=== PATIENT | female | born 1955 | race Caucasian/White ===

== ENCOUNTER 2017-02-01 18:32 | Emergency (ER) | payer OTHER ==
[2017-02-01] MEDS ORDERED: ONDANSETRON 4 MG TAB.RAPDIS PO ONE ×2 (19:34→23:25)
[2017-02-01] MEDS ORDERED: ONDANSETRON 4 MG TAB.RAPDIS ONE ×2 (19:35→23:26)
[2017-02-01] MEDS ORDERED: NORMAL SALINE 1,000 ML IV ONE (20:02)
--- OUTSIDE RECORDS SUMMARY | 2017-02-01 20:02 | XMS REPORT | CCD ---
:1955 Author Name KRISH BOB Address [address] [facility] Unavailable [place], [place] [id number] Care Team Providers Name Role Phone DILIP SALCEDO Attending Physician Unavailable WILVER CANELA Nurse Oxygen Furnace Operator Unavailable Vital Signs Vital Sign Value Unit Height 64 in Weight Measured 146.1 lbs BMI (Body Mass Index) 25.08 kg/m^2 BSA (Body Surface Area) 1.73 m^2 Allergies Allergy Code Allergy Type Reaction Status No Known Drug Allergies 0 No known drug allergies Active Procedures Procedure Code Procedure Type Date CATARAC PHACOEMULS ASPIR 1341 ICD-9 CM, Volume 3 10/09/2013 INSERT LENS AT CATAR EXT 1371 ICD-9 CM, Volume 3 10/09/2013 History of Immunizations Unknown. Problems Unknown. Results Unknown. Medications Unknown. Medications Administered Unknown. 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 Instructions You were admitted to [facility] on 10/09/2013 with a principle diagnosis of SENILE NUCLEAR CATARACT. You had the following procedures done:CATARACT SURG W/IOL 1 STAGEINSERT LENS AT CATAR EXT You were discharged from [facility] on 10/09/2013. Should you have any questions prior to discharge, please contact a member of your healthcare team. If you have left the hospital and have any questions, please contact your primary care physician. Chief Complaint and Reason For Visit Unknown. Function Status Unknown. Plan of Care Unknown.
--- OUTSIDE RECORDS SUMMARY | 2017-02-01 20:02 | XMS REPORT | Continuity of Care Document ---
:1955 Author Organization [facility] ([facility]) Address [address] [place] [address] Phone [phone] Care Team Providers Name Role Phone AlexusbrendanRaul Primary Care Provider [phone] Source Comments This disclosure is being made pursuant to the Care Everywhere program, applicable federal and state laws, and may not contain all informaitonavailable regarding this patient.[facility] ([facility]) Active Allergies and Adverse Reactions Allergen Noted Date Severity Reactions Comments Metoclopramide 01/12/2012 Dizziness Current Medications Prescription Sig. Disp. Refills Start Date End Date Status DULOXETINE HCL (CYMBALTA Take 60 mg by mouth Active PO) daily . ALPRAZolam (XANAX) 0.5 mg Take 0.5 mg by Active tablet mouth at bedtime as needed. traZODone 100 mg tablet Take 100 mg by Active mouth at bedtime. Taking 2 tablets at bed time ranitidine 75 mg tablet Take 75 mg by mouth Active 2 times daily. FLUoxetine 40 mg capsule Take 40 mg by mouth Active daily. levothyroxine 75 mcg Take 75 mcg by Active tablet mouth every morning before breakfast. cetirizine 10 mg tablet Take 10 mg by mouth Active daily. Active Problems Problem Noted Date Breast asymmetry between [place] breast and reconstructed breast 05/11/2016 Personal history of breast cancer 01/30/2016 Stage 2 carcinoma of breast, ER- 11/14/2012 Immunizations Name Dates Previously Given Next Due Influenza, unspecified 09/22/2015 Varicella 04/21/2015 Social History Tobacco Use Types Packs/Day Years Used Date Former Smoker Cigarettes 0.25 Quit: 01/27/2016 Smokeless Tobacco: Never Used Comments:wokring on quitting Last Filed Vital Signs Vital Sign Reading Time Taken Blood Pressure 128/66 04/28/2016 2:25 PM CDT Pulse 51 04/28/2016 9:21 AM CDT Temperature 36.5 C (97.7 F) 05/11/2016 9:48 AM CDT Respiratory Rate 14 04/28/2016 9:21 AM CDT Height 1.626 m (5' 4.02") 04/20/2016 11:37 AM CDT Weight 56.1 kg (123 lb 10.9 oz) 04/28/2016 9:21 AM CDT Body Mass Index 21.22 04/28/2016 9:21 AM CDT Oxygen Saturation 98% 04/28/2016 2:25 PM CDT Plan of Care Health Maintenance Due Date Last Done Comments HCV Screening 1955 Hepatitis B Vaccine (1 of 3 - Primary 1955 Series) Tdap Vaccine 1966 Lipid Disorder Screening 1973 Td Vaccine 1973 Pneumococcal Vaccine (1 of 3 - PCV13) 1974 Cervical Cancer Screening 1985 Mammogram 01/01/2005 01/01/2004, 12/27/2002 Colonoscopy 11/22/2005 Zoster Vaccine 2015 Influenza Vaccine: Seasonal (#1) 06/28/2016 09/22/2015 Results from Last 3 Months Not on file
--- NOTE | 2017-02-01 20:13 | ERNOTE ---
Medical Problem HPI - Narrative Date of Service: 02/01/17 - General Chief Complaint: Nausea/Vomiting Time Seen by Provider: 02/01/17 19:56 Source: patient Exam Limitations: no limitations - Immun/Allergies/Home Medications Immunizations: IMMUNIZATION HX Immunizations Up to Date No History of Influenza Vaccine Yes Hx Pneumococcal Vaccination No Allergies/Adverse Reactions: Allergies No Known Allergies Allergy (Unverified 08/08/14 17:06) Home Medications: HOME MEDICATIONS Alprazolam [Xanax Xr] 0.5 mg PO DAILY 08/08/14 [Last Taken Unknown] DULoxetine HCL [Cymbalta] 10 mg PO DAILY 08/08/14 [Last Taken Unknown] FLUoxetine HCL [Prozac] 20 mg PO DAILY 08/08/14 [Last Taken Unknown] Levothyroxine Sodium [Tirosint] 75 mcg PO DAILY 08/08/14 [Last Taken Unknown] Multivitamin [Multi Vitamin Daily] 1 each PO DAILY 08/08/14 [Last Taken Unknown] Ranitidine HCl [Zantac] 150 mg PO HS 08/08/14 [Last Taken Unknown] traZODone HCL [Desyrel] 100 mg PO HS 08/08/14 [Last Taken Unknown] Ondansetron [Zofran Odt] 4 mg PO Q6H PRN #20 tab 02/01/17 [Last Taken Unknown] Tegretol 02/01/17 [Last Taken Unknown] - History of Present History Narrative: Pt. comes in with c/o nausea, vomiting, and diarrhea for 10 hours. Pt. states that she was recently exposed to a stomach virus by her grandchildren and they are better but she has had 20 diarrhea stools today and is having intermittent stomach cramps with this and bilious vomiting x 3 today. Pt. denies any fever, SOB, sinus congestion, recent illness, alleviating factors, or aggravating factors. Pt. denies any prehospital treatment. Review of Systems - Review of Systems Constitutional: Present: no symptoms reported. Absent: recent illness, fever, chills, weakness, fatigue, malaise EYE: Present: no symptoms reported ENT: Present: no symptoms reported. Absent: nose congestion, nasal drainage, sore throat Respiratory: Present: no symptoms reported. Absent: shortness of breath, cough , wheezing Cardiology: Present: no symptoms reported. Absent: chest pain, palpitations, edema Gastrointestinal/Abdominal: Present: nausea, vomiting, diarrhea, abdominal pain - intermittent cramping Musculoskeletal: Present: no symptoms reported. Absent: back pain, joint pain Skin: Present: no symptoms reported Neurological: Present: no symptoms reported. Absent: headache, dizziness/light- headedness, numbness, tingling Endocrine: Present: no symptoms reported All Other Systems: All systems neg except as marked - Patient's Past Medical History Patient History - Medical: Anxiety, Depression, GERD, Hypothyroidism Patient History - Cardiac/Respiratory: No pertinent hx Patient History - Cancer: Breast Patient History - Surgical Procedures: Cancer Surgery, Cholecystectomy, Tubal Ligation Patient History - Other: None - Social History Living Situations: home Abuse History: No History of abuse Psych History: Hx of Anxiety, Hx of Depression, Current tx/ever been on anti- depressants or anti-anxiety meds Smoking Status: Never smoker Have you smoked in the past 12 months: No Do you dip or chew tobacco: No Patient requests Smoking Cessation Consult: No Initiate information on Smoking Cessation: No Alcohol Use: occasionally Drug Use: marijuana - Immunizations Immunizations Up to Date: No Hx Pneumococcal Vaccination: No History of Influenza Vaccine: Yes Physical Exam - Physical Exam General Appearance: Present: wd/wn, alert, no apparent distress Eye Exam: Normal inspection: bilateral, PERRL: bilateral, EOMI: bilateral Ears, Nose, Throat: Present: normal ENT inspection Neck: Present: normal inspection, nontender. Absent: lymphadenopathy (R), lymphadenopathy (L) Respiratory: Present: no respiratory distress, normal breath sounds, no accessory muscle use, chest nontender, lungs clear Cardiovascular/Chest: Present: regular rate, rhythm, no murmur, normal peripheral pulses Gastrointestinal/Abdominal: Present: normal bowel sounds, nontender, nondistended, soft, no organomegaly Back Exam: Present: normal inspection, normal range of motion, no CVA tenderness , no vertebral tenderness. Absent: muscle spasm Extremity Exam: Present: normal inspection Neurological Exam: Present: alert, oriented, normal mood/affect, no motor/ sensory deficits, 3d modeler II-XII nml as tested, normal cerebellar test Skin Exam: Present: normal color, warm/dry. Absent: pallor, skin rash ED Progress - Date and Time Seen: Date and Time: 02/01/17 22:56 with US negative elevated LFTs likely related to hepatitis vs tegretol... will have pt. stop tegretol by weaning slowly and having her follow up with her PCP in 2-3 days - Results and Orders Patient's Lab Results:: I have reviewed the patient's lab results. - Vital Signs Patient's Vital Signs:: I have reviewed the patient's vital signs. Vital Signs: Vital Signs 02/01/17 18:49 Temperature 36.4 C L Pulse Rate 82 Respiratory 20 Rate Blood Pressure 140/85 O2 Sat by Pulse 100 Oximetry - CT/Ultrasound CT/Ultrasound Narrative: US negative for acute processes. - Progress/Reassessment Chief Complaint: Nausea/Vomiting Departure - Departure Clinical Impression: Elevated LFTs Disposition: Home self-care Condition: Good Instructions: Liver Function Tests Additional Instructions: Please follow up with primary provider in 2-3 days Referrals: Yordan Vaca MD [Primary Care Provider] - Prescriptions: Ondansetron [Zofran Odt] 4 mg PO Q6H PRN #20 tab PRN Reason: Nausea
[2017-02-01 20:20] LABS: Hematocrit 37.3 % (37.0-47.0); Hemoglobin 12.9 gm/dL (12.5-16.0); Mean Corpuscular Hemoglobin 31.5 pg (27-31); Mean Corpuscular Hgb Conc 34.6 g/dl (32-36); Mean Platelet Volume 8.8 fl (6.0-9.5); Neutrophil # 6.6 K/mm3 (1.3-6.0); Platelet Count 253 K/mm3 (150-450); Red Cell Distribution Width 12.3 % (11.5-14.0); White Blood Count 7.7 K/mm3 (4.0-10.5)
[2017-02-01 20:41] LABS: Albumin * 3.7 gm/dl (3.4-5.0); Anion Gap 12.9 mmol/L (6.8-13.8); BUN/Creatinine Ratio 21.1 (9.0-21.6); Bilirubin, Total 0.9 mg/dL (0.0-1.1); Ca. Corrected For Albumin 8.3 mg/dL (8.4-10.2); Calcium * 8.4 mg/dL (7.9-10.9); Potassium 3.9 mmol/L (3.4-4.6); Total Protein 6.8 gm/dL (6.2-8.2)
[2017-02-01 21:09] LABS: Urine Bilirubin Negative (NEGATIVE); Urine Blood Negative /ul (NEGATIVE); Urine Ketone 5 mg/dL (NEGATIVE); Urine Nitrite Negative (NEGATIVE); Urine Protein 30 mg/dL (NEGATIVE); Urine Urobilinogen Normal (NORMAL)
[2017-02-01 21:23] LABS: Urine Appearance Clear; Urine Bacteria 3+; Urine Color Dark Yellow; Urine RBC None Seen /hpf (0-5); Urine WBC 0-5 /hpf (0-5)
[2017-02-01 23:22] VITALS: BP 152/72
[2017-02-03 11:15] LABS: Hepatitis C Antibody NON-REACTIVE (NON-REACTIVE); Hepatitis Panel Confirmation DNR
[2017-02-03 11:32] LABS: Hepatitis A IgM Antibody NON-REACTIVE (NON-REACTIVE); Hepatitis B Surface Antigen NON-REACTIVE (NON-REACTIVE)
== END 2017-02-01 23:38 | disposition home or self-care (01) ==
LOC: ER 18:32
DX: R79.89 Other specified abnormal findings of blood chemistry (principal); Z85.3 Personal history of malignant neoplasm of breast; F41.8 Other specified anxiety disorders; K21.9 Gastro-esophageal reflux disease without esophagitis; E03.9 Hypothyroidism, unspecified

== ENCOUNTER 2021-03-04 11:54 | Inpatient (IN) ==
[2021-03-04] MEDS ORDERED: ASPIRIN 81 MG TAB.CHEW PO ONE (12:21)
--- NOTE | 2021-03-04 12:24 | ERNOTE ---
Chest Pain/Cardiac HPI Date of Service: 03/04/21 Chief Complaint: Chest Pain Time Seen by Provider: 03/04/21 12:14 Source: patient, family, RN notes reviewed, past records Exam Limitations: no limitations Immunizations: IMMUNIZATION HX Immunizations Up to Date Yes History of Influenza Vaccine Yes Hx Pneumococcal Vaccination Yes Allergies/Adverse Reactions: Allergies carbamazepine [From Tegretol] Adverse Reaction (Severe, Verified 02/09/21 14:51) "liver attack" per patient "liver attack" Jyuuzbe-Hay-Uxv Reductase Inhibitor Adverse Reaction (Severe, Verified 02/09/21 14:51) Diarrhea Home Medications: HOME MEDICATIONS mecobalamin (vitamin B12) 1,000 mcg disintegrating tablet,sublingual 1,000 mcg SL DAILY 01/08/19 [Last Taken Unknown] cholecalciferol (vitamin D3) 25 mcg (1,000 unit) capsule 1,000 unit PO DAILY 07/10/19 [Last Taken Unknown] pantoprazole 20 mg tablet,delayed release 20 mg PO DAILY #90 tab 09/29/20 [Last Taken Unknown] levothyroxine 88 mcg tablet 88 mcg PO DAILY #90 tab 12/04/20 [Last Taken Unknown] zolmitriptan 2.5 mg tablet 2.5 mg PO Q4H PRN #12 tab 12/16/20 [Last Taken Unknown] duloxetine 60 mg capsule,delayed release 60 mg PO DAILY #90 cap 12/22/20 [Last Taken Unknown] trazodone 100 mg tablet 100 mg PO HS #90 tab 12/22/20 [Last Taken Unknown] FLUoxetine HCL [Prozac] 40 mg PO DAILY 02/01/21 [Last Taken Unknown] alprazolam 0.5 mg tablet 0.5 mg PO BID PRN #60 tab 02/17/21 [Last Taken Unknown] Narrative: Chip is a 65-year-old female brought to the emergency department from home by her for chest pain and an elevated blood pressure. She began having chest pain while she was sitting and watching TV. She reports having pain in her left chest that radiated into her left arm and jaw. This was severe at first but she reports that it has mostly subsided. She also reports nausea and vomited shortly after arrival. She took Pepto-Bismol at home without improvement. She checked her blood pressure and it was over 200 systolic. She does not normally have elevated blood pressures. She has no prior history of cardiac events. Her also notes that they drove home from [facility] yesterday. She denies any pain or swelling in her legs. Timing: constant, other - improving Activities at Onset: rest Nitro Today/Relief: no nitro taken today Aspirin Treatment Today: no aspirin today Associated Symptoms: Present: shortness of breath, diaphoresis, nausea, vomiting Prior Chest Pain/Cardiac Workup: Reports: no prior cardiac workup. Denies: prior chest pain Prior Treatment: Reports: recently seen - 1 month ago for UTI Review of Systems - Review of Systems Constitutional: Present: recent illness. Absent: fever, chills, malaise EYE: Present: no symptoms reported ENT: Absent: ear pain, nose congestion, nasal drainage, sore throat Respiratory: Present: shortness of breath. Absent: cough Cardiology: Present: chest pain. Absent: edema, claudication Gastrointestinal/Abdominal: Present: nausea, vomiting. Absent: abdominal pain Genitourinary: Present: no symptoms reported Musculoskeletal: Absent: muscle pain, joint pain Skin: Absent: rash, lesions Neurological: Absent: headache, dizziness/light-headedness Endocrine: Present: no symptoms reported Hematologic/Lymphatic: Absent: easy bruising, easy bleeding Psych: Present: anxiety Medical History (Last Reviewed 03/04/21 @ 14:47 by Kimberly Ingram NP) Generalized anxiety disorder (Chronic) Major depressive disorder, recurrent episode, in partial remission (Acute) Eyelid anomaly (Acute) Hypercholesterolemia (Chronic) Onset Date: Unknown Elevated LFTs (Acute) Facial laceration (Acute) Upper respiratory infection (Acute) Breast cancer (Chronic) Onset Date: ~11/13/10 Hypothyroidism (Chronic) Onset Date: Unknown GERD (gastroesophageal reflux disease) (Chronic) Onset Date: Unknown Depression (Chronic) Onset Date: Unknown Anxiety (Chronic) Onset Date: Unknown COVID-19 vaccine administered Onset Date: ~01/22/21 1st does Pneumonia Onset Date: Unknown Trigeminal neuralgia Onset Date: Unknown Surgical History: Surgical History (Last Reviewed 03/04/21 @ 14:47 by Kimberly Ingram NP) History of cholecystectomy (Acute) Onset Date: ~06/2000 History of tubal ligation (Acute) Onset Date: ~1986 H/O colonoscopy Onset Date: ~05/09/17 H/O lumpectomy Onset Date: ~11/13/10 left History of Colt fundoplication Onset Date: ~2011 History of bladder suspension procedure Onset Date: ~2009 History of esophagogastroduodenoscopy (EGD) Onset Date: ~05/09/17 Hx of breast reduction, elective Onset Date: ~2015 right Hx of lymph node biopsy Onset Date: ~11/13/10 left, negative for mets Family History: Family History (Last Reviewed 03/04/21 @ 14:47 by Kimberly Ingram NP) Mother Diabetes Liver disease Father Cancer Tuberculosis Sister Cancer breast Uncle Cancer skin Aunt Cancer breast, skin Social History: (Last Reviewed 03/04/21 @ 14:47 by Kimberly Ingram NP) Social History: Marital status: lives independently: Yes household members: spouse number of children: 2 number of grandchildren: 5 current occupational status: retired current occupation: retired Highest level of school completed/degree received: high school graduate Service: No Tobacco: Smoking Status: Former smoker Alcohol: alcohol intake: current Alcohol type: wine Substance Use: substance use type: marijuana Dietary Habits: caffeine: Yes Type: coffee Physical Exam - Physical Exam General Appearance: Present: wd/wn, alert, mild distress, anxious Head Exam: Present: normal inspection Eye Exam: Normal inspection: bilateral Neck: Present: normal inspection, nontender, supple, full range of motion Respiratory: Present: no respiratory distress, normal breath sounds, no accessory muscle use, lungs clear Cardiovascular/Chest: Present: regular rate, rhythm, no murmur, normal peripheral pulses Extremity Exam: Present: normal inspection, non-tender, normal range of motion, no edema Neurological Exam: Present: alert, oriented, normal mood/affect, no motor/sensory deficits Skin Exam: Present: normal color, warm/dry Progress - Results and Orders Patient's Lab Results:: I have reviewed the patient's lab results. - Vital Signs Patient's Vital Signs:: I have reviewed the patient's vital signs. Vital Signs: Vital Signs 03/04/21 11:54 Temperature 36.3 C Pulse Rate 65 Respiratory Rate 14 Blood Pressure 204/73 H O2 Sat by Pulse Oximetry 100 - EKG EKG #1 EKG: NSR EKG read: Reviewed by me - CT/Ultrasound CT/Ultrasound Narrative: CTA chest is negative for PE per radiologist report - Progress/Reassessment Chief Complaint: Chest Pain Plan - Plan Plan: The patient was initially given 4 baby aspirin and 1 nitro sublingual. Her blood pressure dropped to 88 systolic. It then rebounded back to 200 systolic in just under an hour. A CTA chest was done to r/o PE since the patient had traveled home from [place], [place] yesterday by car. Her Ddimer was also elevated at 0.54, which is normal when adjusted for age. This was negative for PE. She was given Morphine 2 mg IVP for her ongoing chest pressure, which did then resolve. Initial troponin and EKG were normal. She was then given hydralazine for her blood pressure. It has since improved, currently 128/67. Her PCP is out of the office. Dr. Portillo was contacted and agreed to admit the patient to observation. Departure Clinical Impression: Accelerated hypertension Chest pain Qualifiers: Chest pain type: unspecified Qualified Code(s): R07.9 - Chest pain, unspecified - Departure Disposition: Still a patient Condition: Stable Referrals: Pham Howard MD [Primary Care Provider] -
[2021-03-04] MEDS: NITROGLYCERIN 0.4 MG/TAB BTL SL PRN (12:34)
[2021-03-04 12:36] LABS: Hematocrit 42.7 % (37.0-47.0); Hemoglobin 14.4 gm/dL (12.5-16.0); Mean Cell Volume 94.3 fl (78-100); Mean Corpuscular Hemoglobin 31.8 pg (27-31); Mean Corpuscular Hgb Conc 33.7 g/dl (32-36); Mean Platelet Volume 8.9 fl (8-12.5); Neutrophil # 6.1 K/mm3 (1.3-6.0); Neutrophil % 62.9 % (42-75.0); Platelet Count 364 K/mm3 (150-450); Red Blood Count 4.53 M/mm3 (4.2-5.4); Red Cell Distribution Width 12.8 % (11.5-14.0); White Blood Count 9.8 K/mm3 (4.0-10.5)
[2021-03-04 12:51] LABS: Prothrombin Time (Patient) 10.5 Seconds (9.1-10.7)
[2021-03-04] MEDS ORDERED: NORMAL SALINE 1,000 ML IV ONE (12:53)
[2021-03-04 12:54] LABS: INR 1.01 INR (0.92-1.08); Partial Thrombolplastin Time 23.9 Seconds (24-32)
[2021-03-04 12:56] LABS: ALT 37 U/L (19-67); AST 27 U/L (0-48); Albumin * 3.8 gm/dl (3.4-5.0); Alkaline Phosphatase * 80 U/L (50-170); Anion Gap 13.7 mmol/L (6.8-13.8); BUN/Creatinine Ratio 7.1 (9.0-21.6); Bilirubin, Total 0.2 mg/dL (0.0-1.1); Blood Urea Nitrogen 6 mg/dL (3-23); Ca. Corrected For Albumin 8.9 mg/dL (8.4-10.2); Calcium * 9.1 mg/dL (7.9-10.9); Carbon Dioxide 21.9 mmol/L (24-32.6); Chloride 101 mmol/L (97-106); Glucose * 132 mg/dL (70-110); Potassium 3.6 mmol/L (3.4-4.6); Sodium 133 mmol/L (132-142); Total Protein 7.7 gm/dL (6.2-8.2); Troponin I Less than 0.017 ng/mL (0.00-0.10)
[2021-03-04] MEDS ORDERED: MORPHINE SULFATE 2 MG/ML DISP.SYRIN IV ONE (14:14)
[2021-03-04] MEDS ORDERED: hydrALAZINE HCL 20 MG/ML VIAL IV ONE (14:51)
[2021-03-04] MEDS ORDERED: ALPRAZolam 0.5 MG TABLET PO ONE (18:15)
[2021-03-04] MEDS ORDERED: ALPRAZolam 0.5 MG TABLET PO PRN (18:41)
--- NOTE | 2021-03-04 18:47 | HP ---
Chief Complaint - Chief Complaint Date of Service: 03/04/21 Time of Service: 18:47 Chief Complaint: Chest Pain History of Present Illness: Eliane is a 65 yo female with hyperlipidemia, hypothyroidism, and anxiety who presents to the [facility] ER with chest pain, fatigue, and "racing/pounding" heart rate. Her systolic blood pressure was 220 and EKG and troponin showed no acute change. She was given SL nitro and her blood pressure dropped to 80 systolic but then rebounded back to 200. She was then given hydralazine and morphine and blood pressure improved to 160 systolic and her symptoms resolved. Medical History (Last Reviewed 03/04/21 @ 17:23 by Bao Flores RN) Generalized anxiety disorder (Chronic) Major depressive disorder, recurrent episode, in partial remission (Acute) Eyelid anomaly (Acute) Hypercholesterolemia (Chronic) Onset Date: Unknown Elevated LFTs (Acute) Facial laceration (Acute) Upper respiratory infection (Acute) Breast cancer (Chronic) Onset Date: ~11/13/10 Hypothyroidism (Chronic) Onset Date: Unknown GERD (gastroesophageal reflux disease) (Chronic) Onset Date: Unknown Depression (Chronic) Onset Date: Unknown Anxiety (Chronic) Onset Date: Unknown COVID-19 vaccine administered Onset Date: ~01/22/21 1st does Marijuana use Current Pneumonia Onset Date: Unknown Trigeminal neuralgia Onset Date: Unknown Surgical History: Surgical History (Last Reviewed 03/04/21 @ 17:23 by Bao Flores RN) History of cholecystectomy (Acute) Onset Date: ~06/2000 History of tubal ligation (Acute) Onset Date: ~1986 H/O colonoscopy Onset Date: ~05/09/17 H/O lumpectomy Onset Date: ~11/13/10 left History of Colt fundoplication Onset Date: ~2011 History of bladder suspension procedure Onset Date: ~2009 History of esophagogastroduodenoscopy (EGD) Onset Date: ~05/09/17 Hx of breast reduction, elective Onset Date: ~2015 right Hx of lymph node biopsy Onset Date: ~11/13/10 left, negative for mets Family History: Family History (Last Reviewed 03/04/21 @ 17:23 by Bao Flores RN) Mother Diabetes Liver disease Father Cancer Tuberculosis Sister Cancer breast Uncle Cancer skin Aunt Cancer breast, skin Social History: (Last Updated 03/04/21 @ 17:41 by Bao Flores RN) Social History: Marital status: lives independently: Yes household members: spouse number of children: 2 number of grandchildren: 5 current occupational status: retired current occupation: retired Highest level of school completed/degree received: high school graduate Service: No Tobacco: Smoking Status: Current some day smoker Alcohol: alcohol intake: current Alcohol type: wine Substance Use: substance use type: marijuana Dietary Habits: caffeine: Yes Type: coffee Review Of Systems (GEN) - Review of Systems Generalized/Overall Review: Present: Weakness. Absent: Chills, Fever EENTM: Present: No Symptoms Reported Respiratory: Absent: Cough, Shortness of Breath Cardiac: Present: Chest Pain, Palpitations. Absent: Edema Abdominal: Absent: Nausea, Vomiting Genitourinary: Present: No Symptoms Reported Musculoskeletal: Present: No Symptoms Reported Neurological: Present: No Symptoms Reported Skin: Present: No Symptoms Reported Immunizations: IMMUNIZATION HX Immunizations Up to Date Yes History of Influenza Vaccine Yes Hx Pneumococcal Vaccination Yes Allergies/Adverse Reactions: Allergies Allergy/AdvReac Type Severity Reaction Status Date / Time carbamazepine [From Tegretol] AdvReac Severe "liver Verified 02/09/21 14:51 attack" per patient Kqlyzui-Zyi-Lwy Reductase AdvReac Severe Diarrhea Verified 02/09/21 14:51 Inhibitor Home Medications: HOME MEDICATIONS mecobalamin (vitamin B12) 1,000 mcg disintegrating tablet,sublingual 1,000 mcg SL DAILY 01/08/19 [Last Taken Unknown] cholecalciferol (vitamin D3) 25 mcg (1,000 unit) capsule 1,000 unit PO DAILY 07/10/19 [Last Taken Unknown] pantoprazole 20 mg tablet,delayed release 20 mg PO DAILY #90 tab 09/29/20 [Last Taken Unknown] levothyroxine 88 mcg tablet 88 mcg PO DAILY #90 tab 12/04/20 [Last Taken Unknown] zolmitriptan 2.5 mg tablet 2.5 mg PO Q4H PRN #12 tab 12/16/20 [Last Taken U nknown] duloxetine 60 mg capsule,delayed release 60 mg PO DAILY #90 cap 12/22/20 [Last Taken Unknown] trazodone 100 mg tablet 100 mg PO HS #90 tab 12/22/20 [Last Taken Unknown] FLUoxetine HCL [Prozac] 40 mg PO DAILY 02/01/21 [Last Taken Unknown] alprazolam 0.5 mg tablet 0.5 mg PO BID PRN #60 tab 02/17/21 [Last Taken Unknown] Exam - Exam Vital Signs: Vital Signs - Last Taken Temp 36.5 C 03/04/21 17:17 Pulse 71 03/04/21 17:36 Resp 18 03/04/21 17:17 BP 143/65 03/04/21 17:17 Pulse Ox 99 03/04/21 17:17 Constitutional: Present: Alert, Oriented x3, Cooperative ENT Exam: Present: hearing grossly normal Eye Exam: bilateral eye: normal inspection Respiratory: Present: lungs clear, normal breath sounds, no respiratory distress Cardiovascular/Chest: Present: regular rate, rhythm, no murmur Peripheral Pulses: radial (R): 2+, radial (L): 2+ Abdomen: Present: Normal bowel sounds, soft, nontender, nondistended Extremity: Present: normal inspection Skin Exam: Present: normal color, warm/dry, no cyanosis Neurologic: Present: alert, normal mood/affect, oriented x 3 Appearance: Present: appropriate insight, other - anxious Diagnostic Studies: Abnormal Lab Results 03/04/21 03/04/21 03/04/21 Range/Units 12:31 12:31 12:31 MCH 31.8 H (27-31) pg Immature Gran % (Auto) 0.50 H (0.001-0.429) % Immature Gran # (Auto) 0.05 H (0.000-0.0310) K/mm3 Neutrophils # 6.1 H (1.3-6.0) K/mm3 PTT (Po) 23.9 L (24-32) Seconds D-Dimer (0.19-0.49) ugFEU/mL Carbon Dioxide 21.9 L (24-32.6) mmol/L BUN/Creatinine Ratio 7.1 L (9.0-21.6) Random Glucose 132 H (70-110) mg/dL 03/04/21 Range/Units 12:31 MCH (27-31) pg Immature Gran % (Auto) (0.001-0.429) % Immature Gran # (Auto) (0.000-0.0310) K/mm3 Neutrophils # (1.3-6.0) K/mm3 PTT (Po) (24-32) Seconds D-Dimer 0.54 H (0.19-0.49) ugFEU/mL Carbon Dioxide (24-32.6) mmol/L BUN/Creatinine Ratio (9.0-21.6) Random Glucose (70-110) mg/dL Laboratory Results WBC 9.8 K/mm3 (4.0-10.5) 03/04/21 12:31 RBC 4.53 M/mm3 (4.2-5.4) 03/04/21 12:31 Hgb 14.4 gm/dL (12.5-16.0) 03/04/21 12:31 Hct 42.7 % (37.0-47.0) 03/04/21 12:31 MCV 94.3 fl (78-100) 03/04/21 12:31 MCH 31.8 pg (27-31) H 03/04/21 12:31 MCHC 33.7 g/dl (32-36) 03/04/21 12:31 RDW 12.8 % (11.5-14.0) 03/04/21 12:31 Plt Count 364 K/mm3 (150-450) 03/04/21 12:31 MPV 8.9 fl (8-12.5) 03/04/21 12:31 Immature Gran % (Auto) 0.50 % (0.001-0.429) H 03/04/21 12:31 Immature Gran # (Auto) 0.05 K/mm3 (0.000-0.0310) H 03/04/21 12:31 Neutrophils % 62.9 % (42-75.0) 03/04/21 12:31 Lymphocytes % 26.0 % (20-51) 03/04/21 12:31 Monocytes % 7.7 % (0.0-9) 03/04/21 12:31 Eosinophils % 2.0 % (0.0-3.0) 03/04/21 12:31 Basophils % 0.9 % (0.0-1.0) 03/04/21 12:31 Nucleated RBC % 0.0 k/mm3 (0-1) 03/04/21 12:31 Neutrophils # 6.1 K/mm3 (1.3-6.0) H 03/04/21 12:31 Lymphocytes # 2.54 k/mm3 (1.5-3.5) 03/04/21 12:31 Monocytes # 0.8 k/mm3 (0.0-1.0) 03/04/21 12:31 Eosinophils # 0.2 k/mm3 (0.0-0.7) 03/04/21 12:31 Absolute Basophils 0.1 k/mm3 (0.0-0.1) 03/04/21 12:31 PT 10.5 Seconds (9.1-10.7) 03/04/21 12:31 INR (Anticoag Therapy) 1.01 INR (0.92-1.08) 03/04/21 12:31 PTT ([place]) 23.9 Seconds (24-32) L 03/04/21 12:31 D-Dimer 0.54 ugFEU/mL (0.19-0.49) H 03/04/21 12:31 Sodium 133 mmol/L (132-142) 03/04/21 12:31 Plasma Sodium 134 mmol/L (130-142) 03/04/21 12:31 Potassium 3.6 mmol/L (3.4-4.6) 03/04/21 12:31 Chloride 101 mmol/L (97-106) 03/04/21 12:31 Carbon Dioxide 21.9 mmol/L (24-32.6) L 03/04/21 12:31 Anion Gap 13.7 mmol/L (6.8-13.8) 03/04/21 12:31 BUN 6 mg/dL (3-23) 03/04/21 12:31 Creatinine 0.84 mg/dL (0.4-1.4) 03/04/21 12:31 Est GFR (Non-Af Amer) 72 mL/min (60-130) 03/04/21 12:31 BUN/Creatinine Ratio 7.1 (9.0-21.6) L 03/04/21 12:31 Random Glucose 132 mg/dL (70-110) H 03/04/21 12:31 Calcium 9.1 mg/dL (7.9-10.9) 03/04/21 12:31 Calcium Adj for Albumin 8.9 mg/dL (8.4-10.2) 03/04/21 12:31 Total Bilirubin 0.2 mg/dL (0.0-1.1) 04/07/21 12:31 AST 27 U/L (0-48) 03/04/21 12:31 ALT 37 U/L (19-67) 03/04/21 12:31 Alkaline Phosphatase 80 U/L (50-170) 03/04/21 12:31 Troponin I Less than 0.017 ng/mL (0.00-0.10) 03/04/21 12:31 Total Protein 7.7 gm/dL (6.2-8.2) 03/04/21 12:31 Albumin 3.8 gm/dl (3.4-5.0) 03/04/21 12:31 SARS-CoV-2 (PCR) Not detected (NotDetected) 03/04/21 15:15 Assessment/Plan - Narrative Narrative: Will admit to observation on telemetry with repeat troponins and EKG. Blood pressure has improved and will monitor over night. She does not have a history of hypertension, so unclear as to why it spiked today. She recently flew from [place] but an evaluation for PE was completed in the ER and negative. Will admit to observation. If blood pressure continues to be elevated will start blood pressure medications but will not start anything oral at this time as blood pressure is trending down and she has a history of normal pressure. - Assessment/Plan (1) Chest pain Problem: Acute Qualifiers: Chest pain type: unspecified Qualified Code(s): R07.9 - Chest pain, unspecified (2) Accelerated hypertension Problem: Acute
[2021-03-04 19:20] LABS: TSH * 0.993 uIU/mL (0.358-3.74)
[2021-03-04 19:23] LABS: Troponin I 1.265 ng/mL (0.00-0.10)
[2021-03-04] MEDS ORDERED: traZODone HCL 50 MG TABLET PO SCH (21:00)
[2021-03-05] MEDS ORDERED: LEVOTHYROXINE SODIUM 88 MCG TABLET PO SCH (06:00)
[2021-03-05] MEDS ORDERED: LOSARTAN POTASSIUM 50 MG TABLET PO ONE (06:44)
[2021-03-05 06:47] LABS: Albumin * 3.6 gm/dl (3.4-5.0); Anion Gap 11.9 mmol/L (6.8-13.8); BUN/Creatinine Ratio 4.5 (9.0-21.6); Bilirubin, Total 0.4 mg/dL (0.0-1.1); Ca. Corrected For Albumin 8.9 mg/dL (8.4-10.2); Calcium * 8.9 mg/dL (7.9-10.9); Carbon Dioxide 22.5 mmol/L (24-32.6); Potassium 3.4 mmol/L (3.4-4.6); Total Protein 7.3 gm/dL (6.2-8.2)
[2021-03-05 06:48] LABS: Chol/HDL Risk Ratio 2.7 mg/dL (3.3-4.4)
[2021-03-05] MEDS ORDERED: METOPROLOL TARTRATE 25 MG TABLET PO ONE (06:53)
[2021-03-05 06:56] LABS: Troponin I 7.712 ng/mL (0.00-0.10)
[2021-03-05] MEDS ORDERED: PANTOPRAZOLE SODIUM 20 MG TABLET.DR PO SCH (07:00)
[2021-03-05] MEDS: NITROGLYCERIN 0.4 MG/TAB BTL SL PRN ×2 (07:54→08:22)
[2021-03-05] MEDS ORDERED: NITROGLYCERIN 0.4 MG/TAB BTL SL ONE (08:52)
[2021-03-05] MEDS ORDERED: FLUoxetine HCL 20 MG CAPSULE PO SCH (09:00)
[2021-03-05] MEDS ORDERED: DULoxetine HCL 30 MG CAPSULE.SA PO SCH (09:00)
[2021-03-05] MEDS ORDERED: CHOLECALCIFEROL 1,000 UNIT CAPSULE PO SCH (09:00)
[2021-03-05] MEDS ORDERED: MECOBALAMIN 1000 MCG SL SCH (09:00)
--- NOTE | 2021-03-05 09:20 | DS ---
Transfer Discharge Summary - Diagnosis(s)/Problems (1) Chest pain Problem: Acute (2) Accelerated hypertension Problem: Acute (3) NSTEMI (non-ST elevated myocardial infarction) Problem: Acute (4) Ventricular tachyarrhythmia Problem: Acute - Course Description of Stay: Eliane is a 65 yo female admitted for chest pain observation after presenting to the ER with chest pain and pounding heart rate. Initial work up was negative for acute changes, although systolic bp was 220. She was given nitro SL x 1 which resolved her symptoms and dropped her systolic to 80. It rebounded back to 200 though and she was then given morphine and hydralazine. It then improved to 160 and she remained asymptomatic. She was admitted to [facility] on telemetry. Her repeat troponin came back elevated at 1.2. She remained asymptomatic. I discussed this with Dr. Stringer ([facility]) who thought this was likely related to the hypertensive episode and recommended monitoring as she was without symptoms. She continued to have no symptoms through the night, but on the following morning her symptoms returned and her blood pressure went back above 200 systolic. She was given additional doses of nitro SL which helped her symptoms but did not resolve them and improved her blood pressure to 140 systolic. Thyroid was normal. Magnesium and other electrolytes were normal. She began having a bigeminal rhythm with runs of v tach. Discussed this with [facility] who recommended electrophysiology. Discussed her case with [facility] who accepted her transfer and recommended she be placed on nitro drip and heparin drip. Procedures Performed: none - Results and Findings Results and Findings: Laboratory Results - last 24 hr 03/04/21 03/04/21 03/04/21 12:31 12:31 12:31 WBC 9.8 RBC 4.53 Hgb 14.4 Hct 42.7 MCV 94.3 MCH 31.8 H MCHC 33.7 RDW 12.8 Plt Count 364 MPV 8.9 Immature Gran % (Auto) 0.50 H Immature Gran # (Auto) 0.05 H Neutrophils % 62.9 Lymphocytes % 26.0 Monocytes % 7.7 Eosinophils % 2.0 Basophils % 0.9 Nucleated RBC % 0.0 Neutrophils # 6.1 H Lymphocytes # 2.54 Monocytes # 0.8 Eosinophils # 0.2 Absolute Basophils 0.1 PT 10.5 INR (Anticoag Therapy) 1.01 PTT ([place]) 23.9 L D-Dimer Sodium 133 Plasma Sodium 134 Potassium 3.6 Chloride 101 Carbon Dioxide 21.9 L Anion Gap 13.7 BUN 6 Creatinine 0.84 Est GFR (Non-Af Amer) 72 BUN/Creatinine Ratio 7.1 L Random Glucose 132 H Calcium 9.1 Calcium Adj for Albumin 8.9 Magnesium Total Bilirubin 0.2 AST 27 ALT 37 Alkaline Phosphatase 80 Troponin I Less than 0.017 Total Protein 7.7 Albumin 3.8 Triglycerides Cholesterol LDL Cholesterol VLDL Cholesterol HDL Cholesterol Cholesterol/HDL Ratio TSH SARS-CoV-2 (PCR) 03/04/21 03/04/21 03/04/21 12:31 15:15 18:50 WBC RBC Hgb Hct MCV MCH MCHC RDW Plt Count MPV Immature Gran % (Auto) Immature Gran # (Auto) Neutrophils % Lymphocytes % Monocytes % Eosinophils % Basophils % Nucleated RBC % Neutrophils # Lymphocytes # Monocytes # Eosinophils # Absolute Basophils PT INR (Anticoag Therapy) PTT (Po) D-Dimer 0.54 H Sodium Plasma Sodium Potassium Chloride Carbon Dioxide Anion Gap BUN Creatinine Est GFR (Non-Af Amer) BUN/Creatinine Ratio Random Glucose Calcium Calcium Adj for Albumin Magnesium Total Bilirubin AST ALT Alkaline Phosphatase Troponin I 1.265 H* Total Protein Albumin Triglycerides Cholesterol LDL Cholesterol VLDL Cholesterol HDL Cholesterol Cholesterol/HDL Ratio TSH 0.993 SARS-CoV-2 (PCR) Not detected 03/05/21 03/05/21 03/05/21 01:55 06:24 08:00 WBC RBC Hgb Hct MCV MCH MCHC RDW Plt Count MPV Immature Gran % (Auto) Immature Gran # (Auto) Neutrophils % Lymphocytes % Monocytes % Eosinophils % Basophils % Nucleated RBC % Neutrophils # Lymphocytes # Monocytes # Eosinophils # Absolute Basophils PT INR (Anticoag Therapy) PTT (Po) D-Dimer Sodium 132 Plasma Sodium 132 Potassium 3.4 Chloride 101 Carbon Dioxide 22.5 L Anion Gap 11.9 BUN 3 Creatinine 0.67 Est GFR (Non-Af Amer) 94 D BUN/Creatinine Ratio 4.5 L Random Glucose 121 H Calcium 8.9 Calcium Adj for Albumin 8.9 Magnesium 2.1 Total Bilirubin 0.4 AST 81 H ALT 37 Alkaline Phosphatase 76 Troponin I 5.642 H* 7.712 H* Total Protein 7.3 Albumin 3.6 Triglycerides 68 Cholesterol 254 H LDL Cholesterol 149 H VLDL Cholesterol 14 HDL Cholesterol 91 H Cholesterol/HDL Ratio 2.7 L TSH SARS-CoV-2 (PCR) - Medications Medications: Active Medications Alprazolam (Alprazolam 0.5 Mg Tablet) 0.5 mg PO BID PRN PRN Reason: anxiety Stop: 04/03/21 18:42 Last Admin: 03/05/21 08:42 Dose: 0.5 mg Documented by: Levothyroxine Sodium (Levothyroxine Sodium 88 Mcg Tablet) 88 mcg PO DAILY@0600 [facility] Stop: 04/04/21 06:01 Last Admin: 03/05/21 07:03 Dose: Not Given Documented by: Nitroglycerin (Nitroglycerin 0.4 Mg/Tab Btl) 0.4 mg SL ONCE ONE Stop: 03/05/21 08:53 Last Admin: 03/05/21 08:53 Dose: 0.4 mg Documented by: Pantoprazole Sodium (Pantoprazole Sodium 20 Mg Tablet.) 20 mg PO QD@0700 [facility] Stop: 04/04/21 07:01 Last Admin: 03/05/21 07:05 Dose: 20 mg Documented by: Trazodone HCl (Trazodone Hcl 50 Mg Tablet) 100 mg PO [facility] Stop: 04/03/21 21:01 Last Admin: 03/04/21 21:23 Dose: 100 mg Documented by: Discontinued Medications Alprazolam (Alprazolam 0.5 Mg Tablet) 0.5 mg PO ONCE ONE Stop: 03/04/21 18:16 Last Admin: 03/04/21 18:50 Dose: 0.5 mg Documented by: Aspirin (Aspirin 81 Mg Tab.Chew) 324 mg PO ONCE ONE Stop: 03/04/21 12:22 Last Admin: 03/04/21 12:26 Dose: 324 mg Documented by: Hydralazine HCl (Hydralazine Hcl 20 Mg/Ml Vial) 20 mg IV ONCE ONE Stop: 03/04/21 14:52 Last Admin: 03/04/21 14:55 Dose: 20 mg Documented by: Sodium Chloride (Sodium Chloride 0.9%) 1,000 mls @ 999 mls/hr IV .Q1H1M ONE Stop: 03/04/21 13:53 Last Infusion: 03/04/21 14:23 Dose: Infused Documented by: Losartan Potassium (Losartan Potassium 50 Mg Tablet) 50 mg PO ONCE ONE Stop: 03/05/21 06:45 Last Admin: 03/05/21 07:04 Dose: 50 mg Documented by: Metoprolol Tartrate (Metoprolol Tartrate 25 Mg Tablet) 25 mg PO ONCE ONE Stop: 03/05/21 06:54 Last Admin: 03/05/21 07:04 Dose: 25 mg Documented by: Morphine Sulfate (Morphine Sulfate 2 Mg/Ml Disp.Syrin) 2 mg IV ONCE ONE Stop: 03/04/21 14:15 Last Admin: 03/04/21 14:26 Dose: 2 mg Documented by: Nitroglycerin (Nitroglycerin 0.4 Mg/Tab Btl) 0.4 mg SL Q5MIN PRN PRN Reason: Chest Pain Last Admin: 03/05/21 08:22 Dose: 0.4 mg Documented by: - Disposition Disposition: Short Term Hospital Inpatient Condition: Serious Discharge Date: 03/05/21 Discharge Time: 09:50
[2021-03-05] MEDS ORDERED: NITROGLYCERIN IN 5 % DEXTROSE 50 MG/250 ML INFUS..BTL IV PRN (09:35)
[2021-03-05] MEDS ORDERED: HEPARIN SODIUM,PORCINE/D5W 25,000 UNITS/500 ML BAG IV PRN (09:37)
[2021-03-05] MEDS ORDERED: HEPARIN SODIUM,PORCINE 5,000 UNITS/ML VIAL IV ONE (09:37)
[2021-03-05 10:17] VITALS: BP 132/62
== END 2021-03-05 10:07 | disposition short-term general hospital (02) | DRG 281 ==
LOC: ER 11:54 → MS 11:54
PROVIDERS: ADMIT Family Medicine; ATTEND Family Medicine
DX: E03.9 Hypothyroidism, unspecified; I47.2 Ventricular tachycardia; I10 Essential (primary) hypertension; I21.4 Non-ST elevation (NSTEMI) myocardial infarction; E78.5 Hyperlipidemia, unspecified; F41.9 Anxiety disorder, unspecified; I49.8 Other specified cardiac arrhythmias